=== PATIENT | female | born 1985 | race Caucasian/White ===

== ENCOUNTER 2021-02-19 11:52 | Emergency (ER) | payer OTHER ==
[~2021-02-19] VITALS: Ht 162.6 cm; Wt 59.0 kg
[2021-02-19 11:59] VITALS: BP 115/72
--- NOTE | 2021-02-19 12:02 | PHYS DOC ---
Adult General Chief Complaint Chief Complaint: ANKLE PROBLEM HPI HPI Patient is a healthy 35-year-old female presenting for right ankle pain. Reports suffering an inversion type ankle roll 6 days prior while ambulating down her stairs. Reports she was on her way to work out and missed the last step while walking down stairs suffering an inversion injury. She has history of weak ankles and is sprained them numerous times. She knows how to provide supportive care and has been resting, icing, compressing and elevating using ibuprofen as needed for pain. States ankle instability and pain with palpation of lateral portion of the ankle and weightbearing has lasted longer than typical prompting her to call PCP today. She cannot be seen for 2 weeks and subsequently visited our ER for evaluation. Review of Systems Review of Systems Fourteen body systems of review of systems have been reviewed. See HPI for pertinent positives and negative responses, other cobb all other systems are negative, non-pertinent or non-contributory Physical Exam Physical Exam Constitutional: Well developed, well nourished, no acute distress, non-toxic appearance. HENT: Normocephalic, atraumatic, bilateral external ears normal, oropharynx moist, no oral exudates, nose normal. Eyes: PERRLA, EOMI, conjunctiva normal, no discharge. Neck: Normal range of motion, no tenderness, supple, no stridor. Cardiovascular: Heart rate regular per monitor Lungs & Thorax: No respiratory distress or accessory muscle use, bilateral chest rise Abdomen: Abdomen soft, non-tender, bowel sounds present in all quadrants, no guarding or rebound, nonacute abdomen. Skin: Warm, dry, no erythema, no rash. Back: No tenderness, no CVA tenderness. Extremities: Tenderness present to right lateral malleolus and base of right fifth metatarsal with otherwise unremarkable foot, ankle, right lower extremity compartment and right knee examinations, no cyanosis, no clubbing. Neurologic: Alert and oriented X 3, normal motor & sensory function, no focal deficits noted. Psychologic: Affect normal, judgement normal, mood normal. Current Patient Data Vital Signs Vital Signs Date Time Temp Pulse Resp B/P (MAP) Pulse Ox O2 Delivery O2 Flow Rate FiO2 02/19/21 11:59 98.0 64 115/72 (86) 100 Vital Signs Date Time Temp Pulse Resp B/P (MAP) Pulse Ox O2 Delivery O2 Flow Rate FiO2 02/19/21 11:59 98.0 64 115/72 (86) 100 EKG EKG [] Radiology/Procedures Radiology/Procedures EXAM: 1. RIGHT ANKLE 3 VIEWS. 2. RIGHT FOOT 3 VIEWS. HISTORY: Pain after injury. COMPARISON: None. FINDINGS: No fractures are identified about the ankle. The alignment of the mortise is maintained. Joint spaces are maintained. No fractures are identified in the foot. Alignment is normal. Joint spaces are maintained. IMPRESSION: 1. No fracture. Electronically signed by: Masood Verde MD (02/19/2021 12:31 PM) [id number] Heart Score C/O Chest Pain: No Risk Factors: Risk Factors: DM, Current or recent (<one month) smoker, HTN, HLP, family history of CAD, obesity. Risk Scores: Risk Factors: DM, Current or recent (<one month) smoker, HTN, HLP, family history of CAD, obesity. Course & Med Decision Making Course & Med Decision Making ABCs unremarkable HPI physical exam and comprehensive ER work-up nonconcerning for any emergent or surgical issues Ankle pain without fracture per radiograph, likely sprain/strain. Patient knowledgeable on supportive care practices and has good access to care with PCP. Strict return precautions discussed, all questions and concerns addressed prior to departure Dragon Disclaimer Dragon Disclaimer This electronic medical record was generated, in whole or in part, using a voice recognition dictation system. Departure Departure: Impression: Primary Impression: Right ankle pain Disposition: HOME / SELF CARE / HOMELESS Condition: STABLE Referrals: JESS WILKINSON DO (PCP) Additional Instructions: You have been evaluated in the Emergency Department today for ankle pain. The x- ray of your ankle did not show any acute bony abnormalities. You can alternate Tylenol and/or Motrin every 4-6 hours to help control your pain. Please also rest, ice, and elevate your ankle to control your pain. Please follow up with your primary care physician as needed. Outpatient referral for physical therapy and potential sports medicine and/or treatment specialist might be indicated. Return to the Emergency Department if you experience worsening pain, numbness/tingling, change of color in your toes, or any other concerning symptoms. SOILA GRANT DO Feb 19, 2021 12:02
--- NOTE | 2021-02-19 12:33 | RAD ---
EXAM: 1. RIGHT ANKLE 3 VIEWS. 2. RIGHT FOOT 3 VIEWS. HISTORY: Pain after injury. COMPARISON: None. FINDINGS: No fractures are identified about the ankle. The alignment of the mortise is maintained. Joint spaces are maintained. No fractures are identified in the foot. Alignment is normal. Joint spaces are maintained. IMPRESSION: 1. No fracture. Electronically signed by: Masood Verde MD (02/19/2021 12:31 PM) [id number]
== END 2021-02-19 12:45 | disposition home or self-care (01) ==
LOC: ER 11:52
DX: M25.571 Pain in right ankle and joints of right foot (principal); W10.9XXA Fall (on) (from) unspecified stairs and steps, initial encounter; Y93.01 Activity, walking, marching and hiking; Y92.89 Other specified places as the place of occurrence of the external cause; Y99.8 Other external cause status
CPT/HCPCS: 73610; 73630; 99284-25

== ENCOUNTER → 2021-04-28 | Outpatient (CLI) | payer OTHER ==
--- NOTE | 2021-04-28 11:11 | RAD ---
EXAM: Maxillofacial bone CT without contrast. HISTORY: Temporomandibular joint clicking. TECHNIQUE: Computed tomographic images of the maxillofacial bones were obtained without contrast. *One or more of the following individualized dose reduction techniques were utilized for this examina tion: 1. Automated exposure control. 2. Adjustment of the mA and/or kV according to patient size. 3. Use of iterative reconstruction technique. COMPARISON: None. FINDINGS: There is minimal degenerative subchondral cyst formation and bony remodeling involving the bilateral mandibular condyles. There is no fracture, dislocation or subluxation. The visualized masto id air cells are clear. There are tiny bilateral maxillary sinus because retention cysts. The ostiome atal units are patent. There is leftward nasal septal deviation. The orbits and visualized portions o f the brain and calvarium are unremarkable. IMPRESSION: 1. 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 2. No acute finding. Electronically signed by: Lorna Medley MD (04/28/2021 11:09 AM) [id number]
== END ==
LOC: CT 09:24
PROVIDERS: ATTEND Otolaryngology
DX: J34.2 Deviated nasal septum (principal); M26.609 Unspecified temporomandibular joint disorder, unspecified side; M19.09 Primary osteoarthritis, other specified site
CPT/HCPCS: 70486